=== PATIENT | male | born 1975 | race Caucasian/White ===

== ENCOUNTER 2021-03-17 07:40 | Day surgery (SDC) | payer OTHER ==
[~2021-03-17] VITALS: Ht 188 cm; Wt 94.3 kg
[~2021-03-17 07:40] MED LIST: DICY10CA3 PO; OMEP-110 PO; OXYC5CAP2 PO
[2021-03-17] MEDS ORDERED: LACTATED RINGERS 1,000 ML IV SCH (08:00)
[2021-03-17] MEDS ORDERED: CHLORHEXIDINE 15 ML UDC ONE (08:04)
[2021-03-17 08:15] VITALS: BP 129/86
[2021-03-17] MEDS ORDERED: CHLORHEXIDINE 15 ML UDC PO ONE (08:30)
[2021-03-17] MEDS ORDERED: BUPIVACAINE/PF 0.25% ONE (09:20)
[2021-03-17] MEDS ORDERED: GENTAMICIN 80 MG/2 ML ONE (09:21)
[2021-03-17] MEDS ORDERED: VANCOMYCIN 1,000 MG ONE (09:21)
[2021-03-17] MEDS ORDERED: MIDAZOLAM 1 MG/ML, 2ML ONE (09:31)
[2021-03-17] MEDS ORDERED: FENTANYL PF 100 MCG/2ML ONE (09:32)
[2021-03-17] MEDS ORDERED: MEPERIDINE/PF 25MG/0.5ML IVPush PRN (10:00)
[2021-03-17] MEDS ORDERED: HYDROmorphone 1 MG/ML, 1ML INJ IVPush PRN (10:00)
[2021-03-17] MEDS ORDERED: FENTANYL PF 100 MCG/2ML IV PRN (10:00)
[2021-03-17] MEDS ORDERED: ONDANSETRON 2MG/ML, 2ML IVPush PRN (10:00)
[2021-03-17] MEDS ORDERED: morphine SULFATE 10 MG/ML, 1ML IVPush PRN (10:00)
[2021-03-17] MEDS ORDERED: ACETAMINOPHEN 325 MG TABLET PO PRN (10:00)
[2021-03-17] MEDS ORDERED: LABETALOL 5MG/ML, 20ML IV PRN (10:00)
[2021-03-17] MEDS ORDERED: hydrALAzine 20 MG/ML, 1ML IV PRN (10:00)
[2021-03-17] MEDS ORDERED: PROPOFOL 10 MG/ML, 20ML ONE (10:06)
[2021-03-17] MEDS ORDERED: CEFAZOLIN 1,000 MG ONE (10:06)
[2021-03-17] MEDS ORDERED: SUCCINYLCHOLINE 20 MG/ML, 10ML ONE (10:06)
[2021-03-17] MEDS ORDERED: OXYcodone 5 MG/5 ML ORAL.SOL UDC ONE (10:47)
[2021-03-17] MEDS ORDERED: ACETAMINOPHEN 650 MG/20.3 ML UDC ONE (10:47)
[2021-03-17] MEDS: OXYcodone 5 MG/5 ML ORAL.SOL UDC PO PRN ×2 (10:49→11:41)
== END 2021-03-17 11:45 | disposition home or self-care (01) ==
LOC: OUT 07:40 → EDSTATUS 16:30
PROVIDERS: ATTEND Student in an Organized Health Care Education/Training Program
DX: N32.81 Overactive bladder (principal); N39.41 Urge incontinence; R35.1 Nocturia; F32.9 Major depressive disorder, single episode, unspecified; Z20.822 Contact with and (suspected) exposure to COVID-19; Z79.899 Other long term (current) drug therapy; Z87.891 Personal history of nicotine dependence; Z90.49 Acquired absence of other specified parts of digestive tract; Z98.890 Other specified postprocedural states
CPT/HCPCS: 64590; 95972; C1767; C1883; J0330; J0690; J1580; J2250; J2704; J3010; J3370; J7120; U0003; U0005